=== PATIENT | male | born 1950 | race Caucasian/White ===

== ENCOUNTER 2022-12-05 17:48 | Inpatient (IN) | payer MEDICARE, OTHER ==
[~2022-12-05] VITALS: Ht 180.3 cm; Wt 81.6 kg
--- NOTE | 2022-12-05 18:00 | NUR ---
BIBA FOR MEDICAL CLEARANCE S/P AGGRESSION TOWARD STAFF AT FACILITY. A/O X 3, ABLE TO MAKE NEEDS KNOWN, TOLERATING WELL ON ROOM AIR.
--- NOTE | 2022-12-05 18:05 | NUR ---
DR LEONARD AT BEDSIDE FOR EVAL
[2022-12-05 18:49] LABS: BASOPHILS % (AUTO) 0.1 % (0.0-2.0); EOSINOPHILS % (AUTO) 0.1 % (0.0-6.0); HEMATOCRIT 37 % (39-51); HEMOGLOBIN 12.4 g/dL (13.5-17.5); LYMPHOCYTES # (AUTO) 5.2 K/uL (0.8-4.8); LYMPHOCYTES % (AUTO) 68.6 % (20.0-44.0); MEAN CORPUSCULAR HGB CONC 33 g/dl (31.0-36.0); MEAN CORPUSCULAR VOLUME 91 fL (80-96); NEUTROPHILS # (AUTO) 1.4 K/uL (1.8-8.9); NEUTROPHILS % (AUTO) 18.2 % (43.0-81.0); PLATELET COUNT (AUTO) 266 K/uL (150-450); RED BLOOD CELL COUNT(AUTO) 4.13 MIL/uL (4.5-6.0); WHITE BLOOD COUNT (AUTO) 7.5 K/uL (4.3-11.0)
--- NOTE | 2022-12-05 18:51 | NUR ---
MOVE SHEET SUBMITTED.
--- NOTE | 2022-12-05 19:15 | NUR ---
URINE SAMPLE OBTAINED
[2022-12-05 19:23] LABS: CALCIUM, SERUM 8.1 mg/dL (8.5-10.1); CARBON DIOXIDE 25 mmol/L (21-32); CHLORIDE 102 mmol/L (98-107); CREATININE 0.8 mg/dL (0.6-1.3); GLUCOSE 95 mg/dL (74-106); POTASSIUM 4.2 mmol/L (3.5-5.1); SODIUM SERUM 132 mmol/L (136-145); UREA NITROGEN, BLOOD 18 mg/dL (7-18)
--- NOTE | 2022-12-05 19:25 | NUR ---
REPORT RECEIVED FROM JIMBO TOLEDO FOR YANE
[2022-12-05 19:29] LABS: ALANINE AMINOTRANSFERASE 81 U/L (12-78); ALBUMIN 2.5 g/dL (3.4-5.0); ALCOHOL, BLOOD < 3 mg/dL (0-10); ALKALINE PHOSPHATASE 264 U/L (46-116); ASPARTATE AMINOTRANSFERASE 58 U/L (15-37); BILIRUBIN,DIRECT 0.2 mg/dL (0.0-0.2); BILIRUBIN,TOTAL 0.5 mg/dL (0.2-1.0); TOTAL PROTEIN, SERUM 7.4 g/dL (6.4-8.2)
[2022-12-05 20:15] LABS: BILIRUBIN,URINE NEGATIVE (NEGATIVE); COLOR,URINE YELLOW (YELLOW); LEUKOCYTE ESTERASE ,URINE NEGATIVE (NEGATIVE); NITRITE, URINE NEGATIVE (NEGATIVE); PROTEIN,URINE NEGATIVE (NEGATIVE); UGLUCOSE NEGATIVE (NEGATIVE)
[2022-12-05 20:22] LABS: BACTERIA,URINE None seen /HPF (None Seen); RBC,URINE 0-2 /HPF (0-2); WBC,URINE 0-2 /HPF (0-3)
[2022-12-05 21:45] LABS: LYMPHOCYTES % (MANUAL) 55 % (16-48); NEUTROPHILS % (MANUAL) 36 (42-76)
[2022-12-05 21:46] LABS: MONOCYTES % (MANUAL) 9 % (0-11.0)
--- NOTE | 2022-12-05 23:59 | NUR ---
REPORT GIVEN TO JORDANA TOLEDO
[2022-12-06] MEDS ORDERED: POLY15DR31 EACHEYE (00:27)
[2022-12-06] MEDS ORDERED: ASPI-1169 PO (00:28)
[2022-12-06] MEDS ORDERED: CHOL400T11 PO (00:29)
[2022-12-06] MEDS ORDERED: TEMAZEPAM 7.5 MG CAPSULE PO PRN (00:30)
[2022-12-06] MEDS ORDERED: MAGNESIUM HYDROXIDE 30 ML UDC PO PRN ×2 (00:30→11:30)
[2022-12-06] MEDS ORDERED: ACETAMINOPHEN 325 MG TABLET PO PRN ×2 (00:30→11:30)
[2022-12-06] MEDS ORDERED: MAG HYDROX/AL HYDROX/SIMETH 30 ML UDC PO PRN (00:30)
[2022-12-06] MEDS ORDERED: DIPH25TA25 PO (00:31)
[2022-12-06] MEDS ORDERED: DOCU100C36 PO (00:32)
[2022-12-06] MEDS ORDERED: FLUV100T3 PO (00:33)
[2022-12-06] MEDS ORDERED: ATOR20TA PO (00:34)
[2022-12-06] MEDS ORDERED: AMIN30LI2 PO (00:35)
[2022-12-06] MEDS ORDERED: LEVO25TA7 PO (00:36)
[2022-12-06] MEDS ORDERED: BLOOD SUGAR DIAGNOSTIC 1 EACH STRIP IN ONE (01:00)
[2022-12-06 01:13] VITALS: BP 123/72; TEMP 98
--- NOTE | 2022-12-06 02:06 | NUR ---
RN NOTES:REFUSED FULL BODY SKIN ASSESSMENT PT.REFUSED FULL BODY SKIN ASESSMENT AND PHOTOS TAKEN ,PT.BEHAVIOR VERY UNCOOPERTIVE, PARANOID,DELUSIONAL , ANXIOUS EASILY AGITATED AT THIS TIME.PER PT. STATED MY SKIN IS FINE.
--- NOTE | 2022-12-06 02:07 | NUR ---
RN NOTES : ADMISSION NOTES: ADMITTED THIS 72Y/O MALE PATIENT ADMITTED FROM [facility] ED , INITIALLY [facility]. ADMITTED TO 5150 HOLD PER HOLD GD, DUE TO INCREASED AGITATION TOWARDS STAFF TOWARDS STAFF AND RESIDENTS ,UPON FACE TO FACE ASSESSMENT PATIENT IS A&OX1 , PARANOID,DELUSIONAL ,ANXIOUS EASILY AGITATED ,DISORGNIZED, DISHELVED ,UNCOOPERTIVE ,LOUD HYPERVERBAL ,TALKING TO SELF ,POOR DECISION MAKING, NEEDS FREQUENTLY REDIRECTIONS,DENIES SI /HI AT THIS TIME, PT. IS POOR HISTORIAN, POOR INSIGHT ,POOR JUDGEMENT , BOTH MD AWARE AND NOTIFIED OF THE ADMISSION, BELONGINGS CONTRABAND WERE DONE ,PT. REFUSED SIGNS ADMISSION CONSENT PAPER DUE TO CONFUSED AND REFUSED INTIALLY ACCU CHECK , PT. RIGHTS DISCUSS BY SUPERINTENDENT NONSELLING , PROVIDE THE PT. WITH HANDBOOK, AND MEDICATIONS GUIDE, ENVIRONMENTAL SAFETY CHECK DONE, ENCOURAGED PT. VERBALIZED ANY FEELING CONCERN TO STAFF, ORIENT TO UNIT POLICY, NO ACUTE DISTRESS NOTED,VITAL SIGNS WNL ,DENIES ANY PAIN AT THIS TIME,WILL CONTINUE TO MONITOR FOR Q15 SAFETY AND BEHAVIOR.
[2022-12-06] MEDS ORDERED: Z GUARD REMEDY 4 OZ OINT TP PRN (05:30)
[2022-12-06 08:04] VITALS: BP 128/68; TEMP 97.9
[2022-12-06] MEDS: Z GUARD REMEDY 4 OZ OINT TP SCH (09:08)
[2022-12-06] MEDS ORDERED: CRAN425C6 PO (10:14)
[2022-12-06] MEDS ORDERED: DIPH25CA51 PO (10:14)
[2022-12-06] MEDS ORDERED: MAGN400O6 PO (10:14)
[2022-12-06] MEDS ORDERED: NA P133E RC (10:14)
[2022-12-06] MEDS ORDERED: ACET-868 PO (10:14)
[2022-12-06] MEDS ORDERED: BISA10SU11 RC (10:14)
--- NOTE | 2022-12-06 11:13 | NUR ---
GPS RN NOTE: PT IS AOX2 WITH PERIODS OF CONFUSION. ANXIOUS AT TIMES, MAKES NEEDS KNOWN, ISOLATIVE IN BED, UNMOTIVATED, AND COOPERATIVE. PATIENT DENIES SUICIDAL AND HOMICIDAL IDEATIONS AT THIS TIME. PATIENT ASSISTED WITH TURNING AND REPOSITIONING Q2HR AND PRN FOR COMFORT AND CIRCULATION. PATIENT HAS NO NEEDS AT THIS TIME. PATIENT EDUCATED ON THE USE OF THE CALL MARSHALL. PATIENT BED SIDE RAILS UP X 2 FOR SAFETY. PATIENT BED IS LOCKED, LOW, WITH BED ALARM ON. WILL CONTINUE TO MONITOR THIS PATIENT Q15 MINUTES WITH THE HELP OF STAFF TO MAINTAIN SAFETY.
[2022-12-06] MEDS ORDERED: NA PHOS,M-B/NA PHOS,DI-BA 1 EA ENEMA RC PRN (11:30)
[2022-12-06] MEDS ORDERED: BISACODYL SUPP (10 MG) 10 MG/SUPP.RECT SUPP.RECT RC PRN (11:30)
[2022-12-06] MEDS ORDERED: diphenhydrAMINE HCL 25 MG CAPSULE PO PRN (11:30)
[2022-12-06] MEDS: ASPIRIN 81 MG TAB.CHEW PO SCH ×2 (11:42→17:09)
[2022-12-06 16:16] VITALS: BP 127/68; TEMP 97.7
[2022-12-06] MEDS: DOCUSATE SODIUM 100 MG CAPSULE PO SCH (16:47)
--- NOTE | 2022-12-06 19:30 | NUR ---
GPS RN NOTE, RECEIVED PATIENT AWAKE AND IN BED, NO S/S OR COMPLAINTS OF PAIN AT THIS TIME. PATIENT IS DISPLAYING NO S/S OF APPARENT DISTRESS AT THIS TIME. PATIENT BREATHING IS UNLABORED WITH EQUAL RISE AND FALL OF THE CHEST. PATIENT IS ALERT AND ORIENTED X 1 ON ROOM AIR WITH A SPO2 97%. PATIENT IS COMPLAINT WITH MEDICATIONS, CONFUSED, PARANOID, ANXIOUS AT TIMES, YELLING AT TIMES, MAKES NEEDS KNOWN, ISOLATIVE, UNMOTIVATED, AND UNCOOPERATIVE. PATIENT DENIES SUICIDAL AND HOMICIDAL IDEATIONS AT THIS TIME. PATIENT ASSISTED WITH TURNING AND REPOSITIONING Q2HR AND PRN FOR COMFORT AND CIRCULATION. PATIENT HAS NO NEEDS AT THIS TIME. PATIENT EDUCATED ON THE USE OF THE CALL MARSHALL. PATIENT BED SIDE RAILS UP X 2 FOR SAFETY. PATIENT BED IS LOCKED, LOW, WITH BED ALARM ON. WILL CONTINUE TO MONITOR THIS PATIENT Q15 MINUTES WITH THE HELP OF STAFF TO MAINTAIN SAFETY.
[2022-12-06 20:11] VITALS: BP 118/80; TEMP 97.9
[2022-12-06] MEDS: FLUVOXAMINE MALEATE 50 MG TABLET PO SCH (22:03)
[2022-12-06] MEDS: ATORVASTATIN 10 MG TABLET PO SCH (22:04)
[2022-12-07 07:11] LABS: BASOPHILS % (AUTO) 0.6 % (0.0-2.0); EOSINOPHILS % (AUTO) 0.4 % (0.0-6.0); HEMATOCRIT 38 % (39-51); HEMOGLOBIN 12.5 g/dL (13.5-17.5); LYMPHOCYTES # (AUTO) 4.7 K/uL (0.8-4.8); LYMPHOCYTES % (AUTO) 71.2 % (20.0-44.0); MEAN CORPUSCULAR HGB CONC 33 g/dl (31.0-36.0); MEAN CORPUSCULAR VOLUME 91 fL (80-96); MONOCYTES # (AUTO) 0.7 K/uL (0.1-1.30); MONOCYTES % (AUTO) 9.9 % (2.0-12.0); NEUTROPHILS # (AUTO) 1.2 K/uL (1.8-8.9); NEUTROPHILS % (AUTO) 17.9 % (43.0-81.0); PLATELET COUNT (AUTO) 251 K/uL (150-450); RED BLOOD CELL COUNT(AUTO) 4.15 MIL/uL (4.5-6.0); WHITE BLOOD COUNT (AUTO) 6.7 K/uL (4.3-11.0)
[2022-12-07] MEDS: LEVOTHYROXINE SODIUM 100 MCG TABLET PO SCH (07:33)
[2022-12-07 07:36] LABS: CALCIUM, SERUM 8.7 mg/dL (8.5-10.1); CREATININE 0.6 mg/dL (0.6-1.3); POTASSIUM 4.3 mmol/L (3.5-5.1)
[2022-12-07 08:00] VITALS: BP 125/61; TEMP 98
[2022-12-07] MEDS: DOCUSATE SODIUM 100 MG CAPSULE PO SCH ×2 (08:24→17:05)
[2022-12-07] MEDS: Z GUARD REMEDY 4 OZ OINT TP SCH (08:25)
[2022-12-07] MEDS: CHOLECALCIFEROL (VITAMIN D 3) 400 UNIT TABLET PO SCH (08:26)
[2022-12-07 16:00] VITALS: BP 131/75; TEMP 98
[2022-12-07] MEDS: ASPIRIN 81 MG TAB.CHEW PO SCH (17:05)
--- NOTE | 2022-12-07 18:44 | NUR ---
RN- CLOSING NOTES PATIENT AWAKE, RESTING IN BED, BREATHING EVEN AND NON LABORED WITH NO S/S OF DISTRESS. PATIENT IS COOPERATIVE, CONFUSED, DISORIENTED, GUARDED, HYPERVERBAL, PASSIVE, SUSPICIOUS, DEPRESSED, ANXIOUS, AND ISOLATIVE. ENCOURAGED PATIENT TO LEAVE ROOM AND SOCIALIZE WITH STAFF, PATIENT REFUSED.PATIENT IS MEDICATION COMPLIANT. DENIES SI/HI BUT IS CONFUSED AT THIS TIME. WILL CONTINUE TO MONITOR Q 15 MINUTES FOR SAFETY AND BEHAVIOR.
[2022-12-07 20:00] VITALS: BP 122/67; TEMP 96.8
[2022-12-07] MEDS: FLUVOXAMINE MALEATE 50 MG TABLET PO SCH (23:00)
[2022-12-07] MEDS: ATORVASTATIN 10 MG TABLET PO SCH (23:00)
[2022-12-08 08:00] VITALS: BP 121/73; TEMP 98.7
--- NOTE | 2022-12-08 09:20 | NUR ---
RIDDHI Clinical Note: Pt placed on a 5150 hold for GD. Per hold, pt was aggressive at his facility. Patient will return back to [facility] [address] [address] ([phone]). RIDDHI spoke with Suzy acevedo who stated that pt is welcomed back. RIDDHI will contact pt's brother Mars ([phone]) to discuss treatment/discharge plan.
--- NOTE | 2022-12-08 09:20 | NUR ---
RIDDHI Initial Discharge Note: Patient will return back to [facility] [address] [place] [address] ([phone]). RIDDHI spoke with Suzy acevedo who stated that pt is welcomed back. RIDDHI will contact pt's brother Mars ([phone]) to discuss treatment/discharge plan. RIDDHI will work with the MD, family, and pt to help coordinate appropriate discharge.
[2022-12-08] MEDS: DOCUSATE SODIUM 100 MG CAPSULE PO SCH ×2 (09:23→17:38)
[2022-12-08] MEDS: LEVOTHYROXINE SODIUM 100 MCG TABLET PO SCH (09:23)
[2022-12-08] MEDS: Z GUARD REMEDY 4 OZ OINT TP SCH (09:24)
[2022-12-08] MEDS: CHOLECALCIFEROL (VITAMIN D 3) 400 UNIT TABLET PO SCH (09:24)
--- NOTE | 2022-12-08 10:59 | NUR ---
RIDDHI Family Contact: RIDDHI contacted pt's brother Mars ([phone]) and discussed treatment/discharge plan. He stated that he is the DPOA. He will send this literary writer the document. He would want pt to return back to [facility].
--- NOTE | 2022-12-08 13:27 | NUR ---
DPOA DOCUMENT: PT'S BROTHER JOSE ALFREDO ([phone]) SENT DPOA DOCUMENT. SW PLACED IN THE CHART.
[2022-12-08 16:00] VITALS: BP 120/64; TEMP 98.7
[2022-12-08] MEDS: ASPIRIN 81 MG TAB.CHEW PO SCH (17:38)
[2022-12-08 20:21] VITALS: BP 99/63; TEMP 97.6
[2022-12-08] MEDS: FLUVOXAMINE MALEATE 50 MG TABLET PO SCH (21:14)
[2022-12-08] MEDS: ATORVASTATIN 10 MG TABLET PO SCH (21:14)
[2022-12-09 08:00] VITALS: BP 125/73; TEMP 97.8
[2022-12-09] MEDS: LEVOTHYROXINE SODIUM 100 MCG TABLET PO SCH (08:19)
[2022-12-09] MEDS: DOCUSATE SODIUM 100 MG CAPSULE PO SCH ×2 (08:56→17:58)
[2022-12-09] MEDS: CHOLECALCIFEROL (VITAMIN D 3) 400 UNIT TABLET PO SCH (08:57)
[2022-12-09] MEDS: Z GUARD REMEDY 4 OZ OINT TP SCH (08:57)
[2022-12-09] MEDS: GABAPENTIN 100 MG CAPSULE PO SCH ×2 (13:07→17:58)
[2022-12-09 16:00] VITALS: BP 121/67; TEMP 98
[2022-12-09] MEDS: ASPIRIN 81 MG TAB.CHEW PO SCH (17:58)
--- NOTE | 2022-12-09 19:35 | NUR ---
GPS RN OPENING NOTE RECEIVED PATIENT ON HIS WHEELCHAIR. PATIENT IS AWAKE, ALERT AND ORIENTED X 2. ON ROOM AIR; TOLERATING WELL. BREATHING EVEN AND UNLABORED. NO S/SX OF PAIN OR DISCOMFORT. DENIES SUICIDAL AND HOMICIDAL IDEATIONS AT THIS TIME. ABLE TO MAKE NEEDS KNOWN. FALL AND SAFETY MEASURES IMPLEMENTED. WILL CONTINUE TO MONITOR THIS PATIENT Q15 MINUTES FOR BEHAVIOR INSTABILITY AND SAFETY.
[2022-12-09] MEDS: ATORVASTATIN 10 MG TABLET PO SCH (21:46)
[2022-12-09] MEDS: FLUVOXAMINE MALEATE 50 MG TABLET PO SCH (21:46)
--- NOTE | 2022-12-10 07:20 | NUR ---
GPS RN CLOSING NOTE PATIENT IN BED; AWAKE, A/O X 2. STABLE ON ROOM AIR. BREATHING EVEN AND UNLABORED. NO S/SX OF PAIN OR DISCOMFORT. DENIES SUICIDAL AND HOMICIDAL IDEATIONS AT THIS TIME. ALL NEEDS MET. FALL AND SAFETY MEASURES MAINTAINED. ENDORSED TO INCOMING NURSE FOR CONTINUITY OF CARE.
[2022-12-10 08:00] VITALS: BP 115/71; TEMP 97.8
[2022-12-10] MEDS: LEVOTHYROXINE SODIUM 100 MCG TABLET PO SCH (08:26)
[2022-12-10] MEDS: DOCUSATE SODIUM 100 MG CAPSULE PO SCH ×2 (09:18→18:21)
[2022-12-10] MEDS: Z GUARD REMEDY 4 OZ OINT TP SCH (09:18)
[2022-12-10] MEDS: GABAPENTIN 100 MG CAPSULE PO SCH ×3 (09:18→18:21)
[2022-12-10] MEDS: CHOLECALCIFEROL (VITAMIN D 3) 400 UNIT TABLET PO SCH (09:18)
[2022-12-10 16:00] VITALS: BP 132/69; TEMP 98
[2022-12-10] MEDS: ASPIRIN 81 MG TAB.CHEW PO SCH (18:21)
[2022-12-10 19:54] VITALS: BP 130/70; TEMP 97.8
--- NOTE | 2022-12-10 20:15 | NUR ---
RN NOTE:- RECEIVED PATIENT ON HIS WHEELCHAIR. PATIENT IS AWAKE, ALERT AND ORIENTED X 2. ON ROOM AIR; TOLERATING WELL. BREATHING EVEN AND UNLABORED. NO S/SX OF PAIN OR DISCOMFORT. DENIES SUICIDAL AND HOMICIDAL IDEATIONS AT THIS TIME. ABLE TO MAKE NEEDS KNOWN. FALL AND SAFETY MEASURES IMPLEMENTED. WILL CONTINUE TO MONITOR THIS PATIENT Q15 MINUTES FOR BEHAVIOR INSTABILITY AND SAFETY.
[2022-12-10] MEDS: ATORVASTATIN 10 MG TABLET PO SCH (21:22)
[2022-12-10] MEDS: FLUVOXAMINE MALEATE 50 MG TABLET PO SCH (21:22)
[2022-12-11 08:00] VITALS: BP 105/56; TEMP 97.8
[2022-12-11] MEDS: CHOLECALCIFEROL (VITAMIN D 3) 400 UNIT TABLET PO SCH (08:08)
[2022-12-11] MEDS: DOCUSATE SODIUM 100 MG CAPSULE PO SCH ×2 (08:08→17:12)
[2022-12-11] MEDS: LEVOTHYROXINE SODIUM 100 MCG TABLET PO SCH (08:08)
[2022-12-11] MEDS: GABAPENTIN 100 MG CAPSULE PO SCH (08:08)
[2022-12-11] MEDS: Z GUARD REMEDY 4 OZ OINT TP SCH (08:09)
[2022-12-11] MEDS: GABAPENTIN 300 MG CAPSULE PO SCH ×2 (13:09→17:12)
--- NOTE | 2022-12-11 13:18 | NUR ---
Court Hearing: SW attempted to contact pt's brother Mars ([phone]) to notify of court hearing.
--- NOTE | 2022-12-11 13:18 | NUR ---
Court Hearing: Patient's court hearing for [id number] was today and it was upheld for GD.
[2022-12-11 16:00] VITALS: BP 155/58; TEMP 97.8
[2022-12-11] MEDS: ASPIRIN 81 MG TAB.CHEW PO SCH (17:12)
--- NOTE | 2022-12-11 18:31 | NUR ---
RN- CLOSING NOTES PATIENT AWAKE, SITTING ON A WHEELCHAIR IN THE DINING ROOM, WATCHING TV, BREATHING EVEN AND NON LABORED WITH NO S/S OF DISTRESS. PATIENT IS COOPERATIVE, CONFUSED, DISORIENTED, GUARDED, HYPERVERBAL, PASSIVE, SUSPICIOUS, ANXIOUS AND LABILE. PATIENT IS MEDICATION COMPLIANT. DENIES SI/HI BUT IS CONFUSED AT THIS TIME. WILL CONTINUE TO MONITOR Q 15 MINUTES FOR SAFETY AND BEHAVIOR.
--- NOTE | 2022-12-11 19:43 | NUR ---
RN NOTES: PATIENT AWAKE, ALERT RESTING IN HIS BED, NO S/S OF DISTRESS. PATIENT IS COOPERATIVE, CONFUSED, DISORIENTED, GUARDED, HYPERVERBAL, PASSIVE, SUSPICIOUS, ANXIOUS AND LABILE. PATIENT IS MEDICATION COMPLIANT. DENIES SI/HI BUT IS CONFUSED AT THIS TIME, SAFETY PRECAUTIONS MAINTAINED,ENCOURAGED TO VERBALIZED ANY FEELING OR CONCERN . WILL CONTINUE TO MONITOR Q 15 MINUTES FOR SAFETY AND BEHAVIOR.
[2022-12-11 20:23] VITALS: BP 109/56; TEMP 98.2
[2022-12-11] MEDS: ATORVASTATIN 10 MG TABLET PO SCH (21:17)
[2022-12-11] MEDS: FLUVOXAMINE MALEATE 50 MG TABLET PO SCH (21:17)
[2022-12-11 22:20] VITALS: BP 128/70; TEMP 98
[2022-12-12 08:00] VITALS: BP 117/66; TEMP 97.8
[2022-12-12] MEDS: CHOLECALCIFEROL (VITAMIN D 3) 400 UNIT TABLET PO SCH (08:06)
[2022-12-12] MEDS: DOCUSATE SODIUM 100 MG CAPSULE PO SCH ×2 (08:06→17:24)
[2022-12-12] MEDS: LEVOTHYROXINE SODIUM 100 MCG TABLET PO SCH (08:06)
[2022-12-12] MEDS: GABAPENTIN 300 MG CAPSULE PO SCH ×3 (08:06→17:24)
[2022-12-12] MEDS: Z GUARD REMEDY 4 OZ OINT TP SCH (08:07)
[2022-12-12 16:04] VITALS: BP 105/64; TEMP 97.8
[2022-12-12] MEDS: ASPIRIN 81 MG TAB.CHEW PO SCH (17:24)
--- NOTE | 2022-12-12 18:36 | NUR ---
RN- CLOSING NOTES PATIENT AWAKE, RESTING IN BED, BREATHING EVEN AND NON LABORED WITH NO S/S OF DISTRESS. PATIENT IS COOPERATIVE, CONFUSED, DISORIENTED, GUARDED, HYPERVERBAL, PASSIVE, SUSPICIOUS, ANXIOUS AND LABILE. PATIENT IS MEDICATION COMPLIANT. DENIES SI/HI BUT IS CONFUSED AT THIS TIME. WILL CONTINUE TO MONITOR Q 15 MINUTES FOR SAFETY AND BEHAVIOR. WILL ENDORSE TO NEXT SHIFT
[2022-12-12 20:00] VITALS: BP 128/71; TEMP 97.6
--- NOTE | 2022-12-12 20:12 | NUR ---
RN NOTES: PATIENT RESTING IN HIS BED, A/O X1 , NO S/S OF DISTRESS. PATIENT IS COOPERATIVE, CONFUSED, DISORIENTED, GUARDED, HYPERVERBAL, PASSIVE, SUSPICIOUS, ANXIOUS AND LABILE. PATIENT IS MEDICATION COMPLIANT. DENIES SI/HI BUT IS CONFUSED AT THIS TIME, SAFETY PRECAUTIONS MAINTAINED,ENCOURAGED TO VERBALIZED ANY FEELING OR CONCERN . WILL CONTINUE TO MONITOR Q 15 MINUTES FOR SAFETY AND BEHAVIOR.
[2022-12-12] MEDS: ATORVASTATIN 10 MG TABLET PO SCH (21:02)
[2022-12-12] MEDS ORDERED: FLUVOXAMINE MALEATE 50 MG TABLET PO SCH (22:00)
--- NOTE | 2022-12-13 07:00 | NUR ---
DEAN OF GRADUATE STUDIES OPENING NOTE PATIENT AWAKE,ALERT AND ORIENTED X3. PATIENT DENIES PAIN AT PRESENT. NO S/S OF RESPIRATORY DISTRESS NOTED. NO S/S OF DISCOMFORT NOTED. SAFETY MEASURES IN PLACE: BED LOCKED TO THE LOWEST POSITION. TABLE WITHIN REACH. SIDE RAILS UP X4. PATIENT INSTRUCTED TO CALL FOR HELP ANYTIME. PATIENT VERBALIZED UNDERSTANDING INSTRUCTIONS. CONT. TO MONITOR.
[2022-12-13 08:00] VITALS: BP 106/65; TEMP 98.6
[2022-12-13] MEDS: LEVOTHYROXINE SODIUM 100 MCG TABLET PO SCH (08:20)
[2022-12-13] MEDS: DOCUSATE SODIUM 100 MG CAPSULE PO SCH ×2 (08:20→16:55)
[2022-12-13] MEDS: GABAPENTIN 300 MG CAPSULE PO SCH ×3 (08:20→16:58)
[2022-12-13] MEDS: CHOLECALCIFEROL (VITAMIN D 3) 400 UNIT TABLET PO SCH (08:21)
[2022-12-13] MEDS: Z GUARD REMEDY 4 OZ OINT TP SCH (09:00)
[2022-12-13 16:00] VITALS: BP_SYST 103; BP_SYST 127; BP_DIAS 58; BP_DIAS 66; TEMP 97.6; TEMP 98.6
[2022-12-13] MEDS: ASPIRIN 81 MG TAB.CHEW PO SCH (16:55)
--- NOTE | 2022-12-13 18:39 | NUR ---
GRAPHIC MANAGER CLOSING NOTE PATIENT AWAKE, ALERT AND ORIENTED X3, PATIENT DENIES PAIN, NO S/S OF DISCOMFORT NOTED. PATIENT ASSISTED TO BATHROOM, UNSTEADY GAIT NOTED. SAFETY MEASURES IN PLACE. BED LOCKED TO THE LOWEST POSITION, TABLE WITHIN REACH. I WILL ENDORSE TO THE FOLLOWING NURSE.
--- NOTE | 2022-12-13 19:30 | NUR ---
GPS RN OPENING NOTES RECEIVED PATIENT IN BED AWAKE AND ALERT IN BED. A/O X 2-3. ON ROOM AIR, BREATHING EVEN AND UNLABORED, NO S/S OF DISTRESS OR SOB NOTED AT THIS TIME. NO PAIN VERBALIZED AT THIS TIME. SAFETY MEASURES IN PLACE WITH BED IN LOWEST LOCKED POSITION. SIDE RAILS UP. BED ALARM ON. TRAY WITHIN EASY REACH. WILL CONTINUE TO MONITOR THE PATIENT.
[2022-12-13 20:17] VITALS: BP 137/71; TEMP 98.1
[2022-12-13] MEDS: ATORVASTATIN 10 MG TABLET PO SCH (21:22)
--- NOTE | 2022-12-14 06:35 | NUR ---
GPS RN CLOSING NOTES PATIENT IN BED AWAKE AND ALERT IN BED. A/O X 2-3. ON ROOM AIR, BREATHING EVEN AND UNLABORED, NO S/S OF DISTRESS OR SOB NOTED AT THIS TIME. NO PAIN VERBALIZED AT THIS TIME. SCHEDULED MEDICATIONS GIVEN. PATIENT WAS COOPERATIVE AND MED COMPLIANT DURING THE SHIFT. SAFETY MEASURES MAINTAINED. WILL ENDORSE TO THE NEXT SHIFT.
--- NOTE | 2022-12-14 07:00 | NUR ---
GPS RN OPENING NOTES RECEIVED PATIENT IN BED AWAKE AND ALERT IN BED. A/O X 2-3. ON ROOM AIR, BREATHING EVEN AND UNLABORED, NO S/S OF DISTRESS OR SOB NOTED AT THIS TIME. NO PAIN VERBALIZED AT THIS TIME. SAFETY PROTOCOL IN PLACE, WILL CONTINUE TO MONITOR THE PATIENT.
[2022-12-14 08:00] VITALS: BP 113/72; TEMP 98.6
[2022-12-14] MEDS: DOCUSATE SODIUM 100 MG CAPSULE PO SCH ×2 (08:18→18:05)
[2022-12-14] MEDS: GABAPENTIN 300 MG CAPSULE PO SCH ×4 (08:18→21:27)
[2022-12-14] MEDS: LEVOTHYROXINE SODIUM 100 MCG TABLET PO SCH (08:18)
[2022-12-14] MEDS: Z GUARD REMEDY 4 OZ OINT TP SCH (08:22)
[2022-12-14] MEDS: CHOLECALCIFEROL (VITAMIN D 3) 400 UNIT TABLET PO SCH (09:00)
[2022-12-14] MEDS: LORAZEPAM 0.5 MG TABLET PO PRN (14:24)
[2022-12-14 16:00] VITALS: BP 107/56; TEMP 98.6
--- NOTE | 2022-12-14 16:00 | NUR ---
Lorazepam 0.5mg returned witnessed by TRE Watson. Not given to the patient
[2022-12-14] MEDS: ASPIRIN 81 MG TAB.CHEW PO SCH (18:04)
[2022-12-14 19:49] VITALS: BP 104/64; TEMP 98.7
[2022-12-14] MEDS: ATORVASTATIN 10 MG TABLET PO SCH (21:27)
[2022-12-15 08:00] VITALS: BP 119/64; TEMP 98.4
[2022-12-15] MEDS: GABAPENTIN 300 MG CAPSULE PO SCH ×4 (09:00→21:40)
[2022-12-15] MEDS: CHOLECALCIFEROL (VITAMIN D 3) 400 UNIT TABLET PO SCH (09:00)
[2022-12-15] MEDS: LEVOTHYROXINE SODIUM 100 MCG TABLET PO SCH (09:05)
[2022-12-15] MEDS: DOCUSATE SODIUM 100 MG CAPSULE PO SCH ×2 (09:05→17:24)
[2022-12-15] MEDS: Z GUARD REMEDY 4 OZ OINT TP SCH (09:06)
[2022-12-15 16:00] VITALS: BP 158/43; TEMP 98.1
[2022-12-15] MEDS: ASPIRIN 81 MG TAB.CHEW PO SCH (17:24)
--- NOTE | 2022-12-15 19:10 | NUR ---
RN NOTES: RECEIVED AWAKE BED, A/OX1,ORIENTED UNIT AND STAFF, CAN BE REDIRECTED, NO SIGN OF AGITATION,RESPOND TO CONVERSATION.MONITOR FOR ANY BEHAVIORAL CHANGES,NO SIGN OF SI/HI;NO SIGN OF AGGRESSION TOWARDS THE STAFF AND OTHERS.SAFETY PRECAUTION OBSERVED.
[2022-12-15 20:00] VITALS: BP 108/66; TEMP 97.3
--- NOTE | 2022-12-15 20:07 | NUR ---
RN NOTES: RECEIVED AWAKE,HE ASKED FOR A SNACK AT AROUND 1950, GIVEN JUICE AND SANDWICH, NO BEHAVIORAL CHANGES.
[2022-12-15] MEDS: ATORVASTATIN 10 MG TABLET PO SCH (21:40)
--- NOTE | 2022-12-16 06:51 | NUR ---
RN NOTES: ABLE TO SLEEP IN THE NIGHT, NO COMPLAINTS MADE, NO BEHAVIORAL CHANGES. ENDORSED FOR CONTINUITY OF CARE.
[2022-12-16 08:00] VITALS: BP_SYST 121; BP_SYST 151; BP_DIAS 78; BP_DIAS 89; TEMP 98.1; TEMP 98.6
[2022-12-16] MEDS: GABAPENTIN 300 MG CAPSULE PO SCH ×4 (08:13→21:13)
[2022-12-16] MEDS: CHOLECALCIFEROL (VITAMIN D 3) 400 UNIT TABLET PO SCH (08:13)
[2022-12-16] MEDS: DOCUSATE SODIUM 100 MG CAPSULE PO SCH ×2 (08:13→17:11)
[2022-12-16] MEDS: LEVOTHYROXINE SODIUM 100 MCG TABLET PO SCH (08:13)
[2022-12-16] MEDS: Z GUARD REMEDY 4 OZ OINT TP SCH (08:47)
[2022-12-16] MEDS: LORAZEPAM 0.5 MG TABLET PO PRN (11:03)
--- NOTE | 2022-12-16 11:03 | NUR ---
RN- NOTES ATIVAN ADMINISTERED DUE TO INCREASED YELLING AND AGITATION.
[2022-12-16 16:00] VITALS: BP 126/64; TEMP 98.1
[2022-12-16] MEDS: ASPIRIN 81 MG TAB.CHEW PO SCH (17:11)
[2022-12-16 20:30] VITALS: BP 107/64; TEMP 97.1
[2022-12-16] MEDS: ATORVASTATIN 10 MG TABLET PO SCH (21:13)
[2022-12-17 08:00] VITALS: BP 104/53; TEMP 98.7
[2022-12-17] MEDS: CHOLECALCIFEROL (VITAMIN D 3) 400 UNIT TABLET PO SCH (08:24)
[2022-12-17] MEDS: DOCUSATE SODIUM 100 MG CAPSULE PO SCH ×2 (08:24→16:23)
[2022-12-17] MEDS: GABAPENTIN 300 MG CAPSULE PO SCH ×4 (08:24→21:36)
[2022-12-17] MEDS: LEVOTHYROXINE SODIUM 100 MCG TABLET PO SCH (08:24)
[2022-12-17] MEDS: Z GUARD REMEDY 4 OZ OINT TP SCH (08:25)
--- NOTE | 2022-12-17 14:56 | NUR ---
RIDDHI Family Contact: SW contacted pt's brother Mars ([phone]) and left a voicemail that he will be discharging back to [facility] 12/18.
[2022-12-17 16:00] VITALS: BP 112/66; TEMP 98.1
[2022-12-17] MEDS: ASPIRIN 81 MG TAB.CHEW PO SCH (17:13)
[2022-12-17 20:12] VITALS: BP 128/57; TEMP 98.1
[2022-12-17] MEDS: ATORVASTATIN 10 MG TABLET PO SCH (21:36)
[2022-12-18 08:00] VITALS: BP 120/72; TEMP 97.8
--- NOTE | 2022-12-18 08:00 | NUR ---
RN-CO: DR BRITO GAVE AN ORDER TO DISCONTINUE HOLD AND DISCHARGE PATIENT, NOTED AND CARRIED OUT.
[2022-12-18] MEDS: Z GUARD REMEDY 4 OZ OINT TP SCH (08:08)
[2022-12-18] MEDS: LEVOTHYROXINE SODIUM 100 MCG TABLET PO SCH (08:08)
[2022-12-18] MEDS: DOCUSATE SODIUM 100 MG CAPSULE PO SCH (08:08)
[2022-12-18] MEDS: CHOLECALCIFEROL (VITAMIN D 3) 400 UNIT TABLET PO SCH (08:08)
[2022-12-18] MEDS: GABAPENTIN 300 MG CAPSULE PO SCH ×2 (08:08→12:49)
--- NOTE | 2022-12-18 08:08 | NUR ---
SW Discharge Note: Patient will be discharged to [facility] [address], [place] [address] ([phone]). Please arrange ambulance transportation at 1PM. Spoke with Suzy, Admin Coordinator at the facility who states they are ready to accept the patient today. Patients brother Mars ([phone]) is aware and agreeable. Patient is alert and oriented x1. Patient denies any suicidal or homicidal ideation. Patient will follow-up at the facility with Dr. Tran located at [address], [place] [address]; ([phone]) and (Bone Glue Maker) Dr. Morales [address], [place] [address]; ([phone]). Patient presents with euthymic mood and congruent affect.
--- NOTE | 2022-12-18 12:00 | NUR ---
RN-CO: Patient was medically cleared by Dr Odonnell and ordered to continue routine medications. Patient denies suicidal and homicidal ideations as well as auditory and visual hallucinations. He was seen and examined by Dr Joyce (covering for Dr Tran) He ordered to discontinue hold and discharge patient today to SNF. Sister Donita was notified of the discharge and agreed..
--- NOTE | 2022-12-18 13:20 | NUR ---
RN DC NOTE PATIENT STABLE, DENIES PAIN AT THIS TIME. DENIES SI/SH. PATIENT IS A/OX1. PT IS COOPERATIVE AND NON AGGRESSIVE AT THIS TIME. GIVEN REPORT TO [facility] REPORT GIVEN TO BLAISE (TRE). [facility] ARRIVED TO TRANSFER PATIENT. PATEINT LEFT UNIT VIA GURNEYAT THIS TIME.
== END 2022-12-18 13:20 | DRG 885 ==
LOC: ER 18:24 → GPS 23:41
PROVIDERS: ADMIT Psychiatry & Neurology Psychiatry; ATTEND Nurse Practitioner Acute Care
DX: F31.64 Bipolar disorder, current episode mixed, severe, with psychotic features (principal); F01.53 Vascular dementia, unspecified severity, with mood disturbance; G93.41 Metabolic encephalopathy; E44.1 Mild protein-calorie malnutrition; E87.1 Hypo-osmolality and hyponatremia; F01.52 Vascular dementia, unspecified severity, with psychotic disturbance; F01.54 Vascular dementia, unspecified severity, with anxiety; F33.3 Major depressive disorder, recurrent, severe with psychotic symptoms; F42.9 Obsessive-compulsive disorder, unspecified; E03.9 Hypothyroidism, unspecified; E78.5 Hyperlipidemia, unspecified; E88.09 Other disorders of plasma-protein metabolism, not elsewhere classified; I10 Essential (primary) hypertension; K21.9 Gastro-esophageal reflux disease without esophagitis; Z86.73 Personal history of transient ischemic attack (TIA), and cerebral infarction without residual deficits; Z20.822 Contact with and (suspected) exposure to COVID-19; F41.9 Anxiety disorder, unspecified; F29 Unspecified psychosis not due to a substance or known physiological condition; Z73.6 Limitation of activities due to disability; R74.01 Elevation of levels of liver transaminase levels; R53.1 Weakness; Z68.25 Body mass index [BMI] 25.0-25.9, adult
CPT/HCPCS: 36415; 80048-TC; 80061-TC; 80076-TC; 81001; 85025-TC; 87081-TC; 97112-TC; 97116-TC; 97530-TC; A4223; G0480; J7060